=== PATIENT | female | born 1990 | race Caucasian/White ===

== ENCOUNTER 2017-08-17 04:30 | Inpatient (IN) | payer OTHER ==
[2017-08-17] MEDS ORDERED: CITRIC ACID/SODIUM CITRATE SOL PO SCH (04:45)
[2017-08-17] MEDS: LACTATED RINGERS 1,000 ML IV SCH ×5 (04:55→21:00)
[2017-08-17] MEDS ORDERED: CITRIC ACID/SODIUM CITRATE SOL PO ONE (04:58)
[2017-08-17] MEDS ORDERED: CEFAZOLIN SODIUM 1 GM PDS IV ONE (06:15)
[2017-08-17] MEDS ORDERED: LACTATED RINGERS 1,000 ML with OXYTOCIN 10000 MU/ML 20 MU IV ONE ×2 (06:40→07:01)
[2017-08-17] MEDS ORDERED: BENZOCAINE/MENTHOL 1 SPR TOP PRN (08:10)
[2017-08-17] MEDS ORDERED: DIPHENHYDRAMINE 25 MG CAP PO PRN (08:10)
[2017-08-17] MEDS ORDERED: WITCH HAZEL 1 EA PAD TOP PRN (08:10)
[2017-08-17] MEDS ORDERED: METHYLERGONOVINE MALEATE 0.2 MG TAB PO PRN (08:10)
[2017-08-17] MEDS ORDERED: FLEET ENEMA PR PRN (08:10)
[2017-08-17] MEDS ORDERED: TEMAZEPAM 15MG 15 MG CAP PO PRN (08:10)
[2017-08-17] MEDS ORDERED: BISACODYL 10 MG SUP PR PRN (08:10)
[2017-08-17] MEDS ORDERED: ONDANSETRON HCL 4 MG/2 ML SOL IV PRN (08:10)
[2017-08-17] MEDS: KETOROLAC TROMETHAMINE 30 MG/ML SOL IV PRN ×2 (09:10→16:15)
[2017-08-17] MEDS: CEFAZOLIN (PREMIX) 1 GM 1 GM/50 ML SOL IV SCH ×2 (09:39→12:11)
[2017-08-17] MEDS ORDERED: CEFAZOLIN SODIUM 1 GM PDS ONE (11:50)
[2017-08-17 12:18] LABS: APPEARANCE,URINE Clear; BILIRUBIN,URINE NEGATIVE (NEGATIVE); COLOR,URINE Yellow; GLUCOSE, URINE (UA) NEGATIVE (NEGATIVE); KETONES,URINE NEGATIVE (NEGATIVE); LEUKOCYTE ESTERASE ,URINE NEGATIVE (NEGATIVE); NITRATE,URINE NEGATIVE (NEGATIVE); OCCULT BLOOD,URINE TRACE INTACT (NEG-TRACE); UROBILINOGEN,URINE 0.2 (0.2-1.0 EU)
[2017-08-17 12:27] LABS: WBC,URINE 0-2 (0-5AV/HPF)
[2017-08-17] MEDS: APAP/HYDROCODONE 325/5 TAB PO PRN ×2 (12:32→19:23)
[2017-08-17] MEDS: DOCUSATE SODIUM 100 MG SGL PO SCH ×2 (12:32→20:34)
[2017-08-17] MEDS: SODIUM CHLORIDE 0.9% FLUSH 10 ML SOL IV SCH ×3 (17:50→23:30)
[2017-08-18] MEDS: APAP/HYDROCODONE 325/5 TAB PO PRN ×4 (01:39→21:36)
[2017-08-18] MEDS: KETOROLAC TROMETHAMINE 30 MG/ML SOL IV PRN (06:01)
[2017-08-18] MEDS: SODIUM CHLORIDE 0.9% FLUSH 10 ML SOL IV SCH ×2 (06:01→15:13)
[2017-08-18] MEDS: DOCUSATE SODIUM 100 MG SGL PO SCH ×2 (09:49→21:36)
[2017-08-18] MEDS: FERROUS GLUCONATE 324 MG TAB PO SCH (12:26)
[2017-08-18] MEDS: IBUPROFEN 600 MG TAB PO PRN ×2 (12:26→18:27)
[2017-08-19] MEDS: IBUPROFEN 600 MG TAB PO PRN ×3 (03:08→19:22)
[2017-08-19] MEDS: APAP/HYDROCODONE 325/5 TAB PO PRN ×3 (07:09→22:19)
[2017-08-19] MEDS: DOCUSATE SODIUM 100 MG SGL PO SCH ×2 (09:46→22:19)
[2017-08-19] MEDS: FERROUS GLUCONATE 324 MG TAB PO SCH (09:47)
[2017-08-20] MEDS: IBUPROFEN 600 MG TAB PO PRN (03:50)
[2017-08-20 04:58] VITALS: O2SAT 96
[2017-08-20] MEDS: FERROUS GLUCONATE 324 MG TAB PO SCH (08:28)
[2017-08-20] MEDS: DOCUSATE SODIUM 100 MG SGL PO SCH (08:29)
[2017-08-20] MEDS: APAP/HYDROCODONE 325/5 TAB PO PRN (08:29)
[2017-08-20 11:09] VITALS: BP 99/56; PULSE 68; RESP 14; TEMP 97.7
== END 2017-08-20 14:40 | disposition home or self-care (01) | DRG 766 ==
LOC: OB 04:30 → OBSVTOIN 04:30
PROVIDERS: ADMIT Family Medicine; ATTEND Family Medicine
PROC: 10D00Z1 Extraction of Products of Conception, Low, Open Approach (ICD-10-PCS; principal; 2017-08-17 06:00)
DX: O34.219 Maternal care for unspecified type scar from previous cesarean delivery (principal); Z37.0 Single live birth; Z3A.39 39 weeks gestation of pregnancy
CPT/HCPCS: 36415; 59025; 81001; 85018; J0690; J1885; J2405; J2590